=== PATIENT | male | born 1945 | race Caucasian/White ===

== ENCOUNTER 2021-12-31 11:25 | Day surgery (SDC) | payer MEDICARE, BC ==
[2021-12-31] MEDS: Polymyxin B/Trimethoprim 10 ML Bottle EYERT SCH ×4 (12:58→14:31)
[2021-12-31] MEDS: Brimonidine 0.2% Ophth Soln 5 ML Bottle EYERT SCH ×4 (13:03→14:31)
[2021-12-31] MEDS: Phenylephrine 2.5% Ophth Soln 2 ML Bot EYERT SCH ×6 (13:08→14:26)
[2021-12-31] MEDS: Tropicamide 1% Ophth Soln 15 ML Bottle EYERT SCH ×4 (13:14→14:02)
[2021-12-31] MEDS: Tetracaine HCl/PF 0.5% 4 ML Bottle EYEBOTH SCH ×3 (14:10→14:26)
[2021-12-31] MEDS: Lidocaine 1% PF 2 ML SDV INJECT SCH ×2 (14:20→14:26)
[2021-12-31] MEDS: Cefuroxime 10 MG/ML SYRINGE EYERT SCH ×2 (14:26→14:30)
[2021-12-31] MEDS: Pilocarpine 4% Ophth Soln 15 ML Bot EYERT SCH ×2 (14:27→14:31)
== END 2021-12-31 14:40 | disposition home or self-care (01) ==
LOC: JD.SDS 11:25
PROVIDERS: ATTEND Ophthalmology
DX: H25.813 Combined forms of age-related cataract, bilateral (principal); H35.3131 Nonexudative age-related macular degeneration, bilateral, early dry stage; H40.003 Preglaucoma, unspecified, bilateral; H16.103 Unspecified superficial keratitis, bilateral; H16.223 Keratoconjunctivitis sicca, not specified as Sjogren's, bilateral; H02.831 Dermatochalasis of right upper eyelid; H02.834 Dermatochalasis of left upper eyelid; I10 Essential (primary) hypertension; Z98.890 Other specified postprocedural states; Z79.899 Other long term (current) drug therapy; Z79.82 Long term (current) use of aspirin
CPT/HCPCS: 66984; J0697; V2632

== ENCOUNTER 2022-01-28 13:51 | Day surgery (SDC) | payer MEDICARE, BC ==
[2022-01-28] MEDS: Polymyxin B/Trimethoprim 10 ML Bottle EYELF SCH ×3 (13:07→14:47)
[2022-01-28] MEDS: Brimonidine 0.2% Ophth Soln 5 ML Bottle EYELF SCH ×3 (13:12→14:47)
[2022-01-28] MEDS: Phenylephrine 2.5% Ophth Soln 2 ML Bot EYELF SCH ×5 (13:17→14:29)
[2022-01-28] MEDS: Tropicamide 1% Ophth Soln 15 ML Bottle EYELF SCH ×4 (13:22→14:05)
[~2022-01-28 13:51] MED LIST: Cefuroxime 10 MG/ML SYRINGE EYELF SCH; Lidocaine 1% PF 2 ML SDV INJECT SCH; Pilocarpine 4% Ophth Soln 15 ML Bot EYELF SCH
[2022-01-28] MEDS: Tetracaine HCl/PF 0.5% 4 ML Bottle EYEBOTH SCH ×4 (14:12→14:36)
== END 2022-01-28 14:54 | disposition home or self-care (01) ==
LOC: JD.SDS 13:51
PROVIDERS: ATTEND Ophthalmology
DX: H25.812 Combined forms of age-related cataract, left eye (principal); H16.103 Unspecified superficial keratitis, bilateral; H16.223 Keratoconjunctivitis sicca, not specified as Sjogren's, bilateral; H35.363 Drusen (degenerative) of macula, bilateral; H35.3131 Nonexudative age-related macular degeneration, bilateral, early dry stage; H40.003 Preglaucoma, unspecified, bilateral; M19.90 Unspecified osteoarthritis, unspecified site; E78.00 Pure hypercholesterolemia, unspecified; I10 Essential (primary) hypertension; Z96.1 Presence of intraocular lens; Z98.890 Other specified postprocedural states; Z79.899 Other long term (current) drug therapy; Z79.82 Long term (current) use of aspirin; Z87.891 Personal history of nicotine dependence
CPT/HCPCS: 66984; J0697; V2632